=== PATIENT | female | born 1965 | race Caucasian/White ===

== ENCOUNTER 2023-01-16 13:36 | Emergency (ER) | payer MEDICAID, OTHER ==
--- NOTE | 2023-01-16 15:04 | ED Physician Documentation ---
PD HPI SKIN - Stated complaint Stated Complaint: GLF/ARM BLISTERS - Chief complaint Chief Complaint: General - History obtained from History obtained from: Patient - History of Present Illness Timing - onset: How many days ago (she traveled here 5 days ago to visit family. Had knee surgery 10/21/22 and wound has been healing slowly. Had had repeated wound infections in the past with several replacement of the knee due to that. Has wrap on knee. Has been touristing a lot the past several days. edema of both legs, left more.) Timing - duration: Days Timing - details: Gradual onset, Still present Location: Other (sunburn redness with mild blistering right forearm and left medial lower leg/ankle.) Quality / character: Burning, Other (having increased pain left knee over baseline thep ast couple of days. Had gotten sunburn arm adn lower leg.) Review of Systems Constitutional: denies: Fever, Chills Cardiac: denies: Chest pain / pressure Respiratory: denies: Dyspnea, Cough GI: denies: Nausea, Vomiting PD PAST MEDICAL HISTORY - Present Medications Home Medications: Ambulatory Orders Medication Instructions Recorded Confirmed Buprenorphine HCl/Naloxone HCl 1 each SL TID 01/16/23 01/16/23 [Suboxone 8 mg-2 mg Sl Film] Divalproex Dr [Depakote Dr] 250 mg PO BID 01/16/23 01/16/23 Doxycycline Hyclate 100 mg PO DAILY 01/16/23 01/16/23 amLODIPine [Norvasc] 10 mg PO DAILY 01/16/23 01/16/23 - Allergies Allergies/Adverse Reactions: Allergies Allergy/AdvReac Type Severity Reaction Status Date / Time Latex, Natural Rubber Allergy Hives Verified 01/16/23 13:49 NSAIDS (Non-Steroidal Allergy Hives Verified 01/16/23 13:49 Anti-Inflamma PD ED PE NORMAL - Vitals Vital signs reviewed: Yes - General General: Alert and oriented X 3, Well developed/nourished - Cardiac Cardiac: RRR, No murmur - Respiratory Respiratory: No respiratory distress, Clear bilaterally - Derm Derm: Normal color (generally with redness localized to right forearm and left lower leg/ankle, with crisp line edge demarcating where clothing was.), Warm and dry - Extremities Extremities: Other (left knee with gilmar wrap on that is moderately snug. There is edema in lower leg that stops at edge of the wrap suggesting it too tight. Some calf tenderness. The knee itself wound does not have purulence nor redness. Superficial ulcerations which pt states are unchanged from last week. ) - Neuro Neuro: Alert and oriented X 3, No motor deficit, No sensory deficit Results - Vitals Vitals: Vital Signs - 24 hr 01/16/23 01/16/23 01/16/23 13:44 13:48 15:48 Temperature 37 C 37.0 C Heart Rate 99 99 92 Respiratory 20 20 18 Rate Blood Pressure 142/92 H 142/92 H 138/88 H O2 Saturation 98 98 98 01/16/23 16:26 Temperature Heart Rate 78 Respiratory 16 Rate Blood Pressure 146/83 H O2 Saturation 98 Oxygen O2 Source Room air - Labs Labs: Laboratory Tests 01/16/23 01/16/23 01/16/23 16:07 16:07 17:00 WBC 5.4 RBC 4.03 L Hgb 11.7 L Hct 35.6 L MCV 88.3 MCH 29.0 MCHC 32.9 RDW 14.0 Plt Count 155 MPV 9.7 Neut # (Auto) 3.2 Lymph # (Auto) 1.3 L [place] # (Auto) 0.5 Eos # (Auto) 0.3 Baso # (Auto) 0.0 Absolute Nucleated RBC 0.00 Nucleated RBC % 0.0 Sodium 134 L Potassium 3.5 Chloride 100 L Carbon Dioxide 27 Anion Gap 7.0 BUN 19 Creatinine 0.6 Estimated GFR (MDRD) 103 Glucose 104 Calcium 9.1 C-Reactive Protein 1.9 Procalcitonin Immunoas < 0.05 PD Medical Decision Making - ED course Complexity details: reviewed results (WBC, CRP and procalcitonin are normal. Wound does not have infectious appearance. The gilmar wrap is fairly snug and the lower leg edema ends at lower edge of wrap, so I think swelling just from wrap too tight. ), considered differential (having increased pain in left knee and lower leg, states had been up more than usual since traveling here and visiting. Has wrap on knee. Got sunburn on right arm and left lower leg with demarcated redness. Concerned for wound infection. ), d/w patient, other (the patient called her Ortho and told about the increased knee pain and some lower leg swelling and he referred her to local ER. ) Reviewed Lab Results: Patient says she had leg ultrasond just prior to travel here, so 6 days ago and no DVT at that time. I told her it would not preclude a DVT now. The edema in leg does seem to demarcate to wrapping and appears from wrap being tight. Offered US here. She deferred. We discussed for her to return if the edema/pain have not improved overnight into tomorrow with her having wrap looser and leg elevated more. She was given dose of IM med Dilaudid here. She is on Suboxone for pain so will get just some added benefit of pain meds from the IM but she says it has helped enough in the past when gotten like that. She did say pain was reasonably improved with IM med. Departure - Departure Disposition: 01 Home, Self Care Clinical Impression: Sunburn, Leg swelling Condition: Stable Record reviewed to determine appropriate education?: Yes Comments: The forearm and lower leg appear like sunburn areas and did not appear to be infected. Use ointment such as aloe or Eucerin or such to them to help soften the skin. Your wound does not have the appearance of infection. The blood test we did including white count, C-reactive protein and procalcitonin do not indicate a deeper or bacterial infection. The swelling of the lower leg seems to demarcate and be related to the tightness of the wrap around the knee. I would suggest having that on looser as it is probably causing impairment of the return lymphatic flow which would already be affected by the operative scarring etc. Elevate and rest the lower leg. You could do a mild wrap on the lower lack leg as well. Have the wrap around the knee looser. If this does not improve the swelling in the lower leg or it has increasing pain or swelling, then return as we can repeat an ultrasound on there to ensure no clots are developing. Forms: PCP List Discharge Date/Time: 01/16/23 17:25
[2023-01-16] MEDS ORDERED: ACETAMINOPHEN 325 MG TABLET PO STA (15:31)
[2023-01-16] MEDS ORDERED: HYDROmorphone 2 MG/ML VIAL IM STA (15:31)
[2023-01-16 16:30] VITALS: BP 146/83
[2023-01-16 16:51] LABS: CALCIUM 9.1 mg/dL (8.5-10.3); CREATININE 0.6 mg/dL (0.6-1.3); CRP - C-REACTIVE PROTEIN 1.9 mg/dL (<0.5); POTASSIUM 3.5 mmol/L (3.5-4.5)
[2023-01-16 17:05] LABS: BASOPHILS % (AUTO) 0.7 %; EOSINOPHILS # (AUTO) 0.3 10^3/uL (0.0-0.7); EOSINOPHILS % (AUTO) 5.9 %; HCT - HEMATOCRIT 35.6 % (37.0-47.0); HGB - HEMOGLOBIN 11.7 g/dL (12.0-16.0); LYMPHOCYTES # (AUTO) 1.3 10^3/uL (1.5-3.5); LYMPHOCYTES % (AUTO) 24.9 %; MEAN CORPUSCULAR HGB CONC 32.9 g/dL (32.0-36.0); MEAN CORPUSCULAR VOLUME 88.3 fL (81.0-99.0); MEAN PLATELET VOLUME 9.7 fL (7.9-10.8); MONOCYTES # (AUTO) 0.5 10^3/uL (0.0-1.0); MONOCYTES % (AUTO) 8.3 %; NEUTROPHILS # (AUTO) 3.2 10^3/uL (1.5-6.6); PLT - PLATELET COUNT 155 10^3/uL (130-450); RED BLOOD COUNT 4.03 10^6/uL (4.20-5.40); WHITE BLOOD COUNT 5.4 x10^3/uL (4.8-10.8)
== END 2023-01-16 17:25 | disposition home or self-care (01) ==
LOC: ED 13:36
DX: R60.0 Localized edema (principal); L55.9 Sunburn, unspecified
CPT/HCPCS: 36415; 80048; 84145; 85025; 86140; 96372; 99283; 99284; A9270; J1170